=== PATIENT | female | born 1980 | race Caucasian/White ===

== ENCOUNTER 2017-10-09 08:30 | Outpatient (RCR) | payer OTHER | END 2017-10-21 | disposition home or self-care (01) | LOC: WSST | DX: R49.9 Unspecified voice and resonance disorder (principal) ==

== ENCOUNTER → 2018-04-02 | Outpatient (CLI) | payer OTHER | LOC: COL.RAD 10:17 | DX: R10.11 Right upper quadrant pain (principal); R11.2 Nausea with vomiting, unspecified ==